=== PATIENT | male | born 1945 | race Caucasian/White ===

== ENCOUNTER 2018-06-23 11:24 | Emergency (ER) | payer MEDICARE, BC ==
[2018-06-23] MEDS ORDERED: Aspirin 81 MG Tab.Chew PO ONE (11:39)
--- NOTE | 2018-06-23 12:03 | EDM.PDOC ---
ED HPI GENERAL MEDICAL PROBLEM - General Chief Complaint: Chest Pain Stated Complaint: CHEST PAIN Time Seen by Provider: 06/23/18 11:59 Source of Information: Reports: Patient History Limitations: Reports: No Limitations - History of Present Illness INITIAL COMMENTS - FREE TEXT/NARRATIVE: Presents with substernal chest pain x 2 days, feels like there's "gas in my chest cavity" which is a fairly normal occurrence due to GERD. Patient concerned because last night he awoke 2-3 times with numbness to left arm which has resolved. Denies chest pain, arm pain or numbness at this time. No h/o CAD. Duration: Day(s): (2) Location: Reports: Chest Severity: Moderate - Related Data Allergies Allergy/AdvReac Type Severity Reaction Status Date / Time [id number] Reductase Allergy Muscle Verified 06/23/18 11:51 Inhibitor Aches Home Meds: Home Meds Cilostazol 100 mg PO BID 07/02/15 [History] Metoprolol Tartrate 75 mg PO BID 07/02/15 [History] Nortriptyline 20 mg PO BEDTIME PRN 07/02/15 [History] Rosuvastatin [Crestor] 5 mg PO ASDIRECTED 07/02/15 [History] Valsartan 80 mg PO BID 07/02/15 [History] Aspirin [Halfprin] 81 mg PO DAILY 01/19/16 [History] Esomeprazole Magnesium [Nexium] 40 mg PO DAILY 01/19/16 [History] [place]-3S/DHA/Epa/Fish Oil/D3 [Fish Oil + D3 Softgel] 1 cap PO DAILY 01/19/16 [ History] Past Medical History HEENT History: Reports: Impaired Vision Cardiovascular History: Reports: High Cholesterol, Hypertension. Denies: CAD, [place] Gastrointestinal History: Reports: GERD Social & Family History - Tobacco Use Smoking Status *Q: Never Smoker ED ROS GENERAL - Review of Systems Review Of Systems: See Below Constitutional: Reports: No Symptoms HEENT: Reports: No Symptoms Respiratory: Reports: No Symptoms Cardiovascular: Reports: Chest Pain (resolved) Endocrine: Reports: No Symptoms GI/Abdominal: Reports: No Symptoms : Reports: No Symptoms Musculoskeletal: Reports: No Symptoms Skin: Reports: No Symptoms Neurological: Reports: Headache, Numbness (LUE (resolved)) Psychiatric: Reports: No Symptoms Hematologic/Lymphatic: Reports: No Symptoms Immunologic: Reports: No Symptoms ED EXAM, GENERAL - Physical Exam Exam: See Below Exam Limited By: No Limitations General Appearance: Alert, WD/WN, No Apparent Distress Ears: Normal External Exam Nose: Normal Inspection Throat/Mouth: No Airway Compromise Head: Atraumatic, Normocephalic Neck: Full Range of Motion Respiratory/Chest: No Respiratory Distress, Lungs Clear, Normal Breath Sounds Cardiovascular: Regular Rate, Rhythm, No Murmur GI/Abdominal: No Distention (Male) Exam: Deferred Rectal (Males) Exam: Deferred Back Exam: Full Range of Motion Extremities: Normal Range of Motion, No Pedal Edema Neurological: Oriented, No Motor/Sensory Deficits Psychiatric: Normal Affect, Normal Mood Skin Exam: Warm, Dry, Intact EKG INTERPRETATION EKG Date: 06/23/18 Time: 11:28 Rhythm: NSR Rate (Beats/Min): 54 [place]: Normal P-Wave: Present QRS: RBBB ST-T: Normal QT: Normal Comparison: NA - No Prior EKG Course - Vital Signs Last Recorded V/S: Last Vital Signs Temp 36.6 C 06/23/18 11:30 Pulse 55 L 06/23/18 11:30 Resp 16 06/23/18 11:30 BP 169/84 H 06/23/18 11:30 Pulse Ox 97 06/23/18 11:30 - Orders/Labs/Meds Orders: Active Orders 24 hr Category Date Time Status CXR [Chest 1V Frontal] [CR] Stat Exams 06/23/18 11:57 Taken EKG 12 Lead [EK] Stat Ther 06/23/18 11:28 Ordered Labs: Laboratory Tests 06/23/18 06/23/18 06/23/18 Range/Units 12:05 12:05 12:05 WBC 5.3 (4.5-12.0) X10-3/uL RBC 4.83 (4.30-5.75) x10(6)uL Hgb 14.1 (11.5-15.5) g/dL Hct 41.4 (30.0-51.3) % MCV 85.7 (80-96) fL MCH 29.3 (27.7-33.6) pg MCHC 34.1 (32.2-35.4) g/dL RDW 12.2 (11.5-15.5) % Plt Count 236 (125-369) X10(3)uL MPV 7.2 L (7.4-10.4) fL Neut % (Auto) 49.5 (46-82) % Lymph % (Auto) 35.5 (13-37) % Harris % (Auto) 8.7 (4-12) % Eos % (Auto) 5 (1.0-5.0) % Baso % (Auto) 1 (0-2) % Neut # (Auto) 2.6 (1.6-8.3) # Lymph # (Auto) 1.9 (0.6-5.0) # Harris # (Auto) 0.5 (0.0-1.3) # Eos # (Auto) 0.3 (0.0-0.8) # Baso # (Auto) 0.0 (0.0-0.2) # Sodium 141 (135-145) mmol/L Potassium 4.2 (3.5-5.3) mmol/L Chloride 104 (100-110) mmol/L Carbon Dioxide 31 (21-32) mmol/L BUN 13 (7-18) mg/dL Creatinine 1.1 (0.70-1.30) mg/dL Est Cr Clr Drug Dosing 59.81 mL/min Estimated GFR (MDRD) > 60 (>60) BUN/Creatinine Ratio 11.8 (9-20) Glucose 122 H (80-116) mg/dL Calcium 8.5 L (8.6-10.2) mg/dL Total Bilirubin 0.5 (0.1-1.3) mg/dL AST 19 (5-25) IU/L ALT 29 (12-36) U/L Alkaline Phosphatase 69 (56-112) IU/L Troponin I < 0.017 L (<0.017-0.056) ng/mL Total Protein 7.2 (6.0-8.0) g/dL Albumin 3.4 (3.2-4.6) g/dL Globulin 3.8 g/dL Albumin/Globulin Ratio 0.9 Meds: Medications Discontinued Medications Generic Name Dose Route Start Last Admin Trade Name Freq PRN Reason Stop Dose Admin Aspirin 324 mg 06/23/18 11:39 Aspirin PO 06/23/18 11:40 ONETIME ONE - Radiology Interpretation Free Text/Narrative:: CXR: NAD - Re-Assessments/Exams Free Text/Narrative Re-Assessment/Exam: 06/23/18 12:57 No chest pain. Complains of mild headache. Departure - Departure Time of Disposition: 12:58 Disposition: Home, Self-Care 01 Condition: Good Clinical Impression: Chest pain Qualifiers: Chest pain type: unspecified Qualified Code(s): R07.9 - Chest pain, unspecified Instructions: Nonspecific Chest Pain, Gastroesophageal Reflux Disease, Adult Referrals: Nico Ruiz MD [Primary Care Provider] - Forms: ED Department Discharge Additional Instructions: Continue Nexium. Follow up with Dr. Ruiz in 1-2 days. Return to the ER as needed. - My Orders Last 24 Hours: My Active Orders 06/23/18 11:28 EKG 12 Lead [EK] Stat 06/23/18 11:57 CXR [Chest 1V Frontal] [CR] Stat - Assessment/Plan Last 24 Hours: My Active Orders 06/23/18 11:28 EKG 12 Lead [EK] Stat 06/23/18 11:57 CXR [Chest 1V Frontal] [CR] Stat
[2018-06-23 15:29] VITALS: BP 128/67
--- NOTE | 2018-06-28 07:59 | CR ---
INDICATION: Chest pain. CHEST: An AP upright view of the chest, 06/23/2018, was compared with 2011 and 06/18/2011, revealing very little, if any, interval change, compared with the previous examination, with no evidence for an acute process. Minimal calcification is noted in the aorta, which is slightly tortuous. The heart is normal in size and shape. An active infiltrate or effusion was not identified. Overlying EKG leads are noted. IMPRESSION: 1. Stable chest, no acute process. 2. ASD aorta. MTDD
== END 2018-06-23 13:10 | disposition home or self-care (01) ==
LOC: FB.ED 11:24
DX: R07.2 Precordial pain (principal); E78.00 Pure hypercholesterolemia, unspecified; I10 Essential (primary) hypertension; K21.9 Gastro-esophageal reflux disease without esophagitis; Z88.8 Allergy status to other drugs, medicaments and biological substances; Z79.899 Other long term (current) drug therapy; Z79.82 Long term (current) use of aspirin
CPT/HCPCS: 36415; 71045; 80053; 84484; 85025; 93005; 99285; A9270-GY

== ENCOUNTER 2022-02-23 19:39 | Emergency (ER) | payer MEDICARE, BC ==
[2022-02-23] MEDS ORDERED: Acetaminophen 500 MG Tab PO ONE (21:04)
[2022-02-24 00:45] VITALS: BP 133/73; PULSE 91
== END 2022-02-23 21:14 | disposition home or self-care (01) ==
LOC: FB.ED 19:39
DX: R07.89 Other chest pain (principal); I25.10 Atherosclerotic heart disease of native coronary artery without angina pectoris; E78.00 Pure hypercholesterolemia, unspecified; I10 Essential (primary) hypertension; K21.9 Gastro-esophageal reflux disease without esophagitis; Z88.8 Allergy status to other drugs, medicaments and biological substances; Z79.899 Other long term (current) drug therapy; Z79.82 Long term (current) use of aspirin
CPT/HCPCS: 36415; 80048; 84484; 85027; 93005; 93010; 99282; 99285-25; A9270-GY

== ENCOUNTER 2024-06-05 13:19 | Emergency (ER) | payer MEDICARE, BC ==
[2024-06-05] MEDS ORDERED: Doxycycline 100 MG Tab PO ONE (13:20)
[2024-06-05 15:07] VITALS: BP 136/66; PULSE 70
== END 2024-06-05 15:10 | disposition home or self-care (01) ==
LOC: FB.ED 13:19
DX: J32.9 Chronic sinusitis, unspecified (principal); I10 Essential (primary) hypertension; E78.00 Pure hypercholesterolemia, unspecified; I25.2 Old myocardial infarction; K21.9 Gastro-esophageal reflux disease without esophagitis; Z95.1 Presence of aortocoronary bypass graft; Z79.82 Long term (current) use of aspirin; Z79.899 Other long term (current) drug therapy; Z88.8 Allergy status to other drugs, medicaments and biological substances
CPT/HCPCS: 99283; A9270-GY